=== PATIENT | female | born 1990 | race Caucasian/White ===

== ENCOUNTER → 2017-07-12 | Outpatient (CLI) | payer OTHER ==
[~2017-07-12] MED LIST: BIRTH CONTROL; Bactrim Ds Tab1 EACH PO; CIPR500 PO; CRUTCH USE; Chewable-Vite1 EAC1 PO; DOXY100 PO; HYDACE5 PO; HYDGUAL120 PO; Mirena1 EACH VG; OMEP20ER PO; OXYACE5T PO; PERM5TC TOP; PHENA200 PO; PROM25 PO; RANI150 PO; SULTRIDS PO; TRAM50 PO; Ultram50 MG PO; Verotin-Gr Cap1 EACH PO
== END | disposition home or self-care (01) ==
LOC: LAB SHORT 11:55 → LAB EV 11:55
DX: R30.0 Dysuria (principal)
CPT/HCPCS: 87086

== ENCOUNTER → 2017-10-08 | Outpatient (CLI) | payer OTHER | END | disposition home or self-care (01) | LOC: LAB SHORT 11:50 → LAB EV 11:50 | DX: R35.0 Frequency of micturition (principal) | CPT/HCPCS: 87086 ==

== ENCOUNTER 2017-10-18 10:47 | Day surgery (SDC) | payer OTHER ==
[~2017-10-18] VITALS: Ht 175.3 cm; Wt 84.6 kg
[2017-10-18] MEDS ORDERED: IBUP600 PO (11:46)
== END 2017-10-18 13:30 | disposition home or self-care (01) ==
LOC: ORSCSDS 10:47
PROVIDERS: Internal Medicine Gastroenterology
PROC: 0D758ZZ Dilation of Esophagus, Via Natural or Artificial Opening Endoscopic (ICD-10-PCS; principal; 2017-10-18 12:15)
PROC: 0DB58ZX Excision of Esophagus, Via Natural or Artificial Opening Endoscopic, Diagnostic (ICD-10-PCS; principal; 2017-10-18 12:15)
DX: R13.10 Dysphagia, unspecified (principal); K21.9 Gastro-esophageal reflux disease without esophagitis; B19.20 Unspecified viral hepatitis C without hepatic coma; F17.210 Nicotine dependence, cigarettes, uncomplicated
CPT/HCPCS: 84703; 88305; J7120

== ENCOUNTER → 2017-10-22 | Outpatient (CLI) | payer OTHER ==
[~2017-10-22] MED LIST changes: +IBUP600 PO
[2017-10-26 00:10] LABS: CHLAMYDIA BY NAA Negative (Negative); GONOCOCCUS BY NAA Negative (Negative); TRICH VAG BY NAA Positive (Negative)
== END | disposition home or self-care (01) ==
LOC: LAB SHORT 11:21 → LAB 11:21
PROVIDERS: Obstetrics & Gynecology
DX: Z11.3 Encounter for screening for infections with a predominantly sexual mode of transmission (principal)
CPT/HCPCS: 87491; 87591; 87661

== ENCOUNTER 2018-01-08 09:12 | Day surgery (SDC) | payer OTHER ==
[~2018-01-08] VITALS: Ht 175.3 cm; Wt 84.7 kg
[~2018-01-08 09:12] MED LIST changes: +LORA.5 PO; +Norco 5-325 Ta1 EACH PO; +Zofran4 MG PO
[2018-01-08 10:26] LABS: International Normalized Ratio 0.99; Prothrombin Time Results 10.2 Sec (9.7-11.5)
[2018-01-08 10:29] LABS: Albumin, Blood 3.2 g/dL (3.4-5.0); Albumin/Globulin Ratio 0.8 (0.8-1.8); Bilirubin, Direct 0.2 mg/dL (0.0-0.3); Bilirubin, Indirect 0.4 mg/dL (0.1-0.7); Bilirubin, Total 0.6 mg/dL (0.1-1.0); Globulin, Blood 4.1 g/dL (2.2-4.0); Total Protein, Blood 7.3 g/dL (6.4-8.2)
== END 2018-01-08 13:25 | disposition home or self-care (01) ==
LOC: ORSCSDS 09:12
PROVIDERS: Orthopaedic Surgery
PROC: 0PSV04Z Reposition Left Finger Phalanx with Internal Fixation Device, Open Approach (ICD-10-PCS; principal; 2018-01-08 10:30)
DX: S62.615A Displaced fracture of proximal phalanx of left ring finger, initial encounter for closed fracture (principal); B19.20 Unspecified viral hepatitis C without hepatic coma; F41.9 Anxiety disorder, unspecified; Z79.899 Other long term (current) drug therapy; F17.210 Nicotine dependence, cigarettes, uncomplicated
CPT/HCPCS: 80076; 84703; 85610; 85730; C1713; J0690; J2250; J3010; J7120

== ENCOUNTER 2020-10-08 13:17 | Emergency (ER) | payer SELFPAY ==
[~2020-10-08] VITALS: Ht 175.3 cm; Wt 86.2 kg
[~2020-10-08 13:17] MED LIST changes: +CRUTCH4 XX; +Naprosyn500 MG PO
[2020-10-08 13:52] LABS: BASOPHILS ABSOLUTE AUTO 0.06 K/mm3 (0.00-0.23); BASOPHILS PERCENT AUTO 1 % (0-2); EOSINOPHILS ABSOLUTE AUTO 0.08 K/mm3 (0.00-0.68); EOSINOPHILS PERCENT AUTO 1 % (0-6); Hematocrit 42.9 % (33.0-51.0); Hemoglobin 14.7 g/dL (11.5-16.0); IMMATURE GRAN ABSOLUTE AUTO 0.01 K/mm3 (0.00-0.10); IMMATURE GRAN PERCENT AUTO 0 % (0-1); LYMPHOCYTES ABSOLUTE AUTO 1.02 K/mm3 (0.84-5.20); LYMPHOCYTES PERCENT AUTO 14 % (21-46); MONOCYTES ABSOLUTE AUTO 0.41 K/mm3 (0.16-1.47); MONOCYTES PERCENT AUTO 6 % (4-13); Mean Corpuscular HGB 35.1 pg (26.0-34.0); Mean Corpuscular HGB Conc 34.3 g/dL (31.5-36.5); Mean Corpuscular Volume 102 fL (80-100); NEUTROPHILS ABSOLUTE AUTO 5.56 K/mm3 (1.96-9.15); NEUTROPHILS PERCENT AUTO 78 % (41-73); Platelet Count 277 K/mm3 (150-400); RDW Coefficient Variation 12.6 % (11.7-14.2); RDW Standard Deviation 47.6 fL (35.1-46.3); Red Blood Cell Count 4.19 M/mm3 (3.80-5.20); White Blood Cell Count 7.14 K/mm3 (4.00-11.30)
[2020-10-08 14:09] LABS: Alanine Aminotransfer (ALT/SGP 55 U/L (12-78); Albumin, Blood 4.2 g/dL (3.4-5.0); Albumin/Globulin Ratio 0.8 (0.8-1.8); Alk Phos 88 U/L (50-136); Anion Gap 6 mmol/L (6-16); Aspartate Aminotrans (AST/SGOT 62 U/L (12-37); Bilirubin, Total 0.8 mg/dL (0.1-1.0); Blood Urea Nitrogen 9 mg/dL (8-24); Bun/Creatinine Ratio 11.4 (12.0-20.0); CO2, Blood 28 mmol/L (21-32); Calcium, Blood 9.4 mg/dL (8.5-10.1); Chloride, Blood 99 mmol/L (98-108); Creatinine, Blood 0.79 mg/dL (0.40-1.00); Glomerular Filtration Rate >60 (60-); Glucose, Blood 95 mg/dL (70-99); Magnesium, Blood 1.7 mg/dL (1.6-2.4); Phosphorus, Blood 2.2 mg/dL (2.5-4.9); Potassium, Blood 3.9 mmol/L (3.5-5.5); Sodium, Blood 133 mmol/L (136-145); Total Protein, Blood 9.2 g/dL (6.4-8.2)
[2020-10-08 14:52] LABS: Beta HCG, Quantitative, Serum <1 mIU/mL (0-3); Troponin I <0.015 ng/mL (0.000-0.040)
[2020-10-08] MEDS ORDERED: Naltrexone HCl50 MG PO (16:38)
[2020-10-08] MEDS ORDERED: Neurontin 100100 MG PO (16:38)
== END 2020-10-08 16:59 | disposition home or self-care (01) ==
LOC: ER 13:17
PROVIDERS: Emergency Medicine; Physician Assistant
DX: R42 Dizziness and giddiness (principal); Z88.5 Allergy status to narcotic agent; Z79.899 Other long term (current) drug therapy; Z87.891 Personal history of nicotine dependence
CPT/HCPCS: 36415; 76830; 76856; 80053; 82310; 83735; 84100; 84443; 84484; 84702; 85025; 93005; 93010; 96374; 99285-25; A9270; J7120

== ENCOUNTER 2021-02-14 12:09 | Emergency (ER) | payer SELFPAY ==
[~2021-02-14] VITALS: Ht 175.3 cm; Wt 81.7 kg
[~2021-02-14 12:09] MED LIST changes: +Naltrexone HCl50 MG PO; +Neurontin 100100 MG PO
== END 2021-02-14 13:20 | disposition home or self-care (01) ==
LOC: ER 12:09
DX: J02.0 Streptococcal pharyngitis (principal); F17.210 Nicotine dependence, cigarettes, uncomplicated; Z79.899 Other long term (current) drug therapy
CPT/HCPCS: 87430; 96372; 99283-25; J0561

== ENCOUNTER → 2022-01-24 | Outpatient (CLI) | payer SELFPAY ==
[2022-01-26 07:11] LABS: CHLAMYDIA BY NAA Negative (Negative); GONOCOCCUS BY NAA Negative (Negative); TRICH VAG BY NAA Negative (Negative)
[2022-01-30 05:08] LABS: HSV-1 DNA Negative (Negative); HSV-2 DNA Positive (Negative)
== END ==
LOC: LAB SHORT 17:00 → LAB 17:00
PROVIDERS: Registered Nurse Community Health
DX: Z11.3 Encounter for screening for infections with a predominantly sexual mode of transmission (principal); N89.8 Other specified noninflammatory disorders of vagina
CPT/HCPCS: 86695; 86696; 87070; 87205; 87491; 87529; 87591; 87661

== ENCOUNTER → 2023-06-06 | Outpatient (CLI) | payer BC ==
[2023-06-09 15:29] LABS: APTIMA MEDIA TYPE Unisex Swab; C. TRACHOMATIS BY TMA Negative (Negative); N. GONORRHOEAE BY TMA Negative (Negative); SPECIMEN SOURCE Cervical; T. VAGINALIS BY TMA Negative (Negative)
[2023-06-14 09:07] LABS: HPV HIGH RISK BY TMA Detected; HPV SOURCE Cervical
== END ==
LOC: LAB SHORT 15:30 → LAB 15:30
PROVIDERS: Registered Nurse Community Health
DX: Z11.3 Encounter for screening for infections with a predominantly sexual mode of transmission (principal)
CPT/HCPCS: 87491; 87591; 87661

== ENCOUNTER 2023-12-13 10:14 | Day surgery (SDC) | payer BC, OTHER ==
[2023-12-13] VITALS (10 sets, daily range): BP systolic 128–150; BP diastolic 86–108
[~2023-12-13] VITALS: Ht 175.3 cm; Wt 95.1 kg
[~2023-12-13 10:14] MED LIST changes: +CeFAZolin Sodium 2,000 MG in NS 100 ML IV SCH; +FentaNYL Citrate 50 MCG/ML 2 ML Injection ONE; +Lactated Ringer's 1,000 ML IV SCH; +propofoL 20 ML IV ONE
[2023-12-13] MEDS ORDERED: MIRENA1 EAC3 VAG (10:31)
[2023-12-13] MEDS ORDERED: Midazolam HCl 1MG / ML 2ML Vial IV ONE (10:40)
[2023-12-13] MEDS ORDERED: FentaNYL Citrate 50 MCG/ML 2 ML Injection IV PRN ×3 (10:40)
[2023-12-13] MEDS ORDERED: Ondansetron HCl 2 MG / ML 2ML Vial IV PRN ×2 (10:40→13:50)
[2023-12-13] MEDS ORDERED: Lidocaine HCl 1% 5 ML SYR INJ ONE (10:40)
--- NOTE | 2023-12-13 11:00 | NUR ---
Ambulatory in Day Surgery. History, Chart, Medications and Allergies reviewed before start of procedure. Lungs clear T/O to Auscultation. Patient REPORTS HAVING SIP OF WATER AT 0700. OR TEAM AND ANESTHESIA NOTIFIED. Pre-Op teaching done. Pt verbalizes understanding. Patient States Post-Procedure ride home has been arranged. PT BELONGINGS PLACED [facility]NEATH [facility] FOR SAFEKEEPING.
[2023-12-13] MEDS ORDERED: Bupivacaine 0.5% HCl 5 MG/ML 30MLVIAL ONE (12:41)
[2023-12-13] MEDS ORDERED: FentaNYL Citrate 50 MCG/ML 2 ML Injection ONE (13:12)
[2023-12-13] MEDS ORDERED: Dexamethasone Sod Phos 10 MG/ML 1ML VIAL ONE (13:15)
[2023-12-13] MEDS ORDERED: Ondansetron HCl 2 MG / ML 2ML Vial ONE (13:15)
[2023-12-13] MEDS ORDERED: OxyCODONE 5 mg/Acetamin 325 mg TABLET PO PRN (13:50)
--- NOTE | 2023-12-13 14:10 | NUR ---
REPORT RECEIVED FROM ELISE JIANG. VSS. PT ON RA. PT A&OX4. PT ABLE TO REPOSITION SELF IN BED. PT REQUESTING PO FOOD AND FLUIDS AND TOLERATING THEM WELL. PT DENIES PAIN, NAUSEA OR OTHER DISCOMFORTS. PT HAS SAHIL PAD IN PLACE WITH NO DRAINAGE NOTED.
--- NOTE | 2023-12-13 14:42 | NUR ---
Patient up to Ambulate independently. Gait steady. VSS AND CONSISTENT WITH PT BASELINE. PT HAS NO COMPLAINTS AND VERBALIZES READINESS TO GO HOME. Discharge instructions reviewed with patient AND HER MOM. Patient verbalizes understanding. Copy given to patient to take home. PT HAS SAHIL PAD IN PLACE WITH NO DRAINAGE NOTED. Patient States Post-Procedure ride home has been arranged. Discharged via wheelchair to private car for ride home. PT BELONGINGS RETURNED TO PT.
== END 2023-12-13 14:44 | disposition home or self-care (01) ==
LOC: ORSCMMR 10:14 → ORD 11:30 → ORSCMMR 14:44
PROVIDERS: Obstetrics & Gynecology
PROC: 0UBC7ZX Excision of Cervix, Via Natural or Artificial Opening, Diagnostic (ICD-10-PCS; principal; 2023-12-13 11:30)
DX: D06.0 Carcinoma in situ of endocervix (principal); F41.9 Anxiety disorder, unspecified; F17.210 Nicotine dependence, cigarettes, uncomplicated
CPT/HCPCS: 88305; A9270; J0690; J1100; J2250; J2405; J2704; J3010; J7120

== ENCOUNTER → 2024-10-14 | Outpatient (CLI) | payer OTHER ==
[~2024-10-14] MED LIST changes: -CeFAZolin Sodium 2,000 MG in NS 100 ML IV SCH; -FentaNYL Citrate 50 MCG/ML 2 ML Injection ONE; -Lactated Ringer's 1,000 ML IV SCH; +MIRENA1 EAC3 VAG; -propofoL 20 ML IV ONE
== END ==
LOC: LAB 17:23 → LAB SHORT 17:23
DX: R30.0 Dysuria (principal)
CPT/HCPCS: 87086